=== PATIENT | female | born 1960 | race African-American/Black ===

== ENCOUNTER 2022-07-14 11:24 | Emergency (ER) | payer OTHER ==
[~2022-07-14] VITALS: Ht 157.5 cm; Wt 70.3 kg
[2022-07-14 11:43] VITALS: BP 144/80
--- NOTE | 2022-07-14 11:48 | NUR ---
bibs for cough and sorethroat x 3 days. denies chest pain, n,v,d,fever, chills, sob, drooling, difficulty swallowing. aao x4. resp even and nolabored. vss. ambualtory.
[2022-07-14] MEDS ORDERED: ROBAC PO (12:51)
[2022-07-14] MEDS ORDERED: OMEP20EC11 PO (12:51)
[2022-07-14] MEDS ORDERED: BENZ-300 PO (12:51)
--- NOTE | 2022-07-14 13:20 | NUR ---
covid and strep a swab sent to lab
[2022-07-14 13:21] VITALS: BP 128/74
== END 2022-07-14 13:21 | disposition home or self-care (01) ==
LOC: MED 11:24
DX: J06.9 Acute upper respiratory infection, unspecified (principal); Z20.822 Contact with and (suspected) exposure to COVID-19; K21.9 Gastro-esophageal reflux disease without esophagitis; R03.0 Elevated blood-pressure reading, without diagnosis of hypertension; Z88.5 Allergy status to narcotic agent; Z79.899 Other long term (current) drug therapy
CPT/HCPCS: 87081; 99283